=== PATIENT | male | born 1975 | race Caucasian/White ===

== ENCOUNTER 2019-10-11 08:03 | Outpatient (CLI) | payer OTHER ==
--- NOTE | 2019-10-11 09:37 | MRI Report ---
PROCEDURE: Brain W/O INDICATIONS: DIZZINESS, HEADACHES, VERTIGO TECHNIQUE: Noncontrast axial T1 spin echo, axial T2 fast spin echo, sagittal and axial FLAIR, coronal T2 fast sp in echo, axial gradient echo, axial diffusion and ADC through the brain. COMPARISON: None. FINDINGS: Image quality: Excellent. CSF Spaces: Basal cisterns are patent. No extra-axial fluid collections. Ventricles are normal in size and shape. Brain: No intracranial masses or hemorrhage. Harding/white matter interface is normal. Brainstem appe ars normal. Diffusion-weighted images demonstrate no acute ischemic insult. No chronic ischemic ins ults. Very mild periventricular hypodensity bilaterally consistent with very mild small vessel ischem ic change. Normal intravascular flow voids are present. Skull and face: Calvarium has normal marrow signal. Orbits appear normal. Sinuses: Bilateral ethmoid sinus mucosal thickening and patchy mild opacification. Mild bilateral max illary sinus mucosal thickening and left sphenoid sinus mucosal thickening. IMPRESSION: 1. Chronic sinusitis. 2. Very mild small vessel ischemic change. 3. No evidence acute stroke, hemorrhage, or mass. Reviewed by: Palomo Keen MD on 10/11/2019 9:36 AM PDT Approved by: Palomo Keen MD on 10/11/2019 9:36 AM PDT Station ID: [id number]
== END 2019-10-11 08:04 | disposition home or self-care (01) ==
LOC: DI 08:03
PROVIDERS: ATTEND General Practice
DX: R42 Dizziness and giddiness (principal); R51 Headache; J32.9 Chronic sinusitis, unspecified
CPT/HCPCS: 70551

== ENCOUNTER 2023-08-15 11:17 | Day surgery (SDC) | payer OTHER ==
[2023-08-15] MEDS: LACTATED RINGERS 1,000 ML IV ONE ×2 (11:22→13:14)
[2023-08-15] MEDS ORDERED: METOCLOPRAMIDE 10 MG/2 ML VIAL IVP PRN (12:39)
[2023-08-15] MEDS ORDERED: MORPHINE 2 MG/ML CARPUJECT IVP PRN (12:39)
[2023-08-15] MEDS ORDERED: ePHEDrine 50 MG/ML VIAL IVP PRN (12:39)
[2023-08-15] MEDS ORDERED: ATROPINE ABBOJECT 1 MG/10 ML SYRINGE IVP PRN (12:39)
[2023-08-15] MEDS ORDERED: HYDROmorphone 0.5 MG/0.5 ML SYRINGE IVP PRN (12:39)
[2023-08-15] MEDS ORDERED: ONDANSETRON 4 MG/2 ML VIAL IVP PRN ×2 (12:39→13:31)
[2023-08-15] MEDS ORDERED: NALOXONE 0.4 MG/ML VIAL IVP PRN (12:39)
[2023-08-15] MEDS ORDERED: fentaNYL 100 MCG/2 ML VIAL IVP PRN (12:39)
--- NOTE | 2023-08-15 12:39 | ANESTHESIA ---
Pre-Anesthesia VS, & Labs - Diagnosis DESIRES STERILIZATION - Procedure VASECTOMY Vital Signs: Temp Pulse Resp BP Pulse Ox O2 Flow Rate 36.6 C 62 16 136/96 H 100 08/15/23 11:33 08/15/23 11:33 08/15/23 11:33 08/15/23 11:33 08/15/23 11:33 Height: 5 ft 7 in Weight (kg): 80.1 kg Body Mass Index: 27.6 BMI Classification: Overweight - NPO >8 hours Home Medications and Allergies Home Medications: Ambulatory Orders No Known Home Medications 08/02/23 No Known Home Medications 08/02/23 Allergies/Adverse Reactions: Allergies Allergy/AdvReac Type Severity Reaction Status Date / Time No Known Drug Allergies Allergy Verified 08/02/23 12:04 Anes History & Medical History - Anesthetic History Anesthesia Complications: reports: No previous complications Family history of Anesthesia Complications: Denies - Medical History Cardiovascular: reports: None, Murmur Pulmonary: reports: None Gastrointestinal: reports: None Urinary: reports: None Musculoskeletal: reports: None Endocrine/Autoimmune: reports: None Skin: reports: None Smoking Status: Never smoker Psychosocial: reports: No issues indicated (DOESN'T), Cannabis (OCCASIONAL) - Surgical History General: reports: Colonoscopy Orthopedic: reports: ACL reconstruction Exam General: Alert Dental: WNL (LORA) Mouth Openin Fingerbreadth Neck Mobility: Normal Mallampati classification: II Thyromental Distance: 4-6 cm Respiratory: Lungs clear Cardiovascular: Regular rate Plan Anesthesia Type: MAC, Total IV Consent for Procedure(s) Verified and Reviewed: Yes Code Status: Attempt Resuscitation ASA classification: 2-Mild systemic disease Is this case an emergency?: No
[2023-08-15] MEDS: LIDOCAINE 1% 50 ML MDV SUBQ ONE ×2 (12:57)
[2023-08-15] MEDS ORDERED: LACTATED RINGERS 1,000 ML IV SCH (13:00)
[2023-08-15] MEDS ORDERED: HYDROcod/ACETAM 5/325 MG TABLET PO PRN (13:31)
[2023-08-15 13:32] VITALS: BP 124/90; O2SAT 99
--- NOTE | 2023-08-15 13:33 | Discharge Plan ---
Discharge Plan Problem Reviewed?: Yes Disposition: 01 Home, Self Care Condition: Good Activity Restrictions: Additional Comments (as instructed) Shower Restrictions: No Driving Restrictions: No Instruction Topics: Vasectomy No Scalpel No Smoking: If you smoke, Please STOP! Call for help.
--- NOTE | 2023-08-15 13:36 | OPERATIVE REPORT ---
Operative Report - General Procedure Date: 08/15/23 Planned Procedure: Bilateral vasectomy Pre-Op Diagnosis: elective sterilization Procedure Performed: Bilateral vasectomy Post Op Diagnosis: elective sterilization - Procedure Note Primary Surgeon: Rufino Anesthesia Provider: KERWIN Hudson Anesthesia Technique: MAC Pathology: none Estimated Blood Loss (mL): 0 Findings: Normal vasectomy Complications: none - Other Other Information/Narrative: After informed consent obtained patient brought to the OR and laid in supine position. The patient was anesthetized per anesthesia protocols and then prepped and draped in usual sterile fashion. A formal timeout was performed reconfirming the patient, procedure and laterality He is vas deferens identified through his right hemiscrotum. 1% lidocaine was used as local. Using a sharp mosquito is scrotal tissue was dissected away and his vas sheath was grasped using a ring clamp. This was sharply incised and the vas was identified and pulled out. It was clamped on both sides and the intervening 1 cm segment was cauterized away. The ends were cauterized as well. The ends were suture-ligated with chromic suture and then the distal end was buried using a fascial interposition stitch using 3-0 chromic suture. There was no bleeding. His skin was closed using a 3-0 chromic horizontal mattress stitch. An identical procedure performed on the left side. Band-Aids were placed. This concluded the procedure and the patient tolerated the procedure well. All counts were correct. He will have a semen analysis performed in 3 months to confirm azoospermia.
--- NOTE | 2023-08-15 16:12 | ANESTHESIA POST OP EVALUATION ---
Anesthesia Post Eval - Post Anesthesia Eval Vitals: Last Vital Signs Temp 36.4 C L 08/15/23 13:30 Pulse 55 L 08/15/23 13:30 Resp 16 08/15/23 13:30 BP 124/90 H 08/15/23 13:30 Pulse Ox 99 08/15/23 13:30 O2 Flow Rate CV Function Including HR & BP: Stable Pain Control: Satisfactory Nausea & Vomiting: Negative Mental Status: Baseline Respiratory Status: Airway Patent Hydration Status: Satisfactory Anesthesia Complications: None
== END 2023-08-15 11:18 | disposition home or self-care (01) ==
LOC: OR 11:17
PROVIDERS: ATTEND Urology
DX: Z30.2 Encounter for sterilization (principal)